=== PATIENT | female | born 1980 ===

== ENCOUNTER 2018-01-30 12:18 | Emergency (ER) | payer OTHER ==
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
[2018-01-30 13:49] LABS: SQUAMOUS EPITHIAL 11 /hpf (0-5); URINE BILIRUBIN NEGATIVE (NEGATIVE); URINE BLOOD NEGATIVE (NEGATIVE); URINE CLARITY CLOUDY (Clear); URINE COLOR YELLOW (YELLOW); URINE GLUCOSE (UA) NEG (Normal); URINE LEUKOCYTE ESTERASE NEG Leu/uL (Negative); URINE PROTEIN 30 mg/dL (NEGATIVE)
[2018-01-30 13:55] LABS: BASO # 0.1 K/uL (0.0-0.2); EOS # 0.1 K/uL (0.0-0.7); EOS % 1.2 % (0.0-4.0); HEMOGLOBIN 13.1 g/dL (12.0-16.0); LYMPH # 2.3 K/uL (1.0-4.3); LYMPH % 43.6 % (20.0-40.0); MEAN CELL VOLUME 89.6 fl (81.0-99.0); MEAN CORPUSCULAR HEMOGLOBIN 30.5 pg (27.0-31.0); MEAN PLATELET VOLUME 7.7 fl (7.2-11.7); MONO # 0.5 K/uL (0.0-0.8); MONO % 9.1 % (0.0-10.0); NEUT # 2.4 K/uL (1.8-7.0); NEUT % 45.1 % (50.0-75.0); NRBC % 0.1 % (0.0-0.0); RBC 4.3 Mil/uL (3.80-5.20); RED CELL DISTRIBUTION WIDTH 13.3 % (11.5-14.5); WHITE BLOOD COUNT 5.3 K/uL (4.8-10.8)
[2018-01-30 14:04] LABS: ALB/GLOB RATIO 1.3 (1.0-2.1); ALT/SGPT 22 U/L (9-52); AST/SGOT 18 U/L (14-36); BLOOD UREA NITROGEN 15 mg/dl (7-17); GFR NON-AFRICAN AMERICAN > 60
[2018-01-30 14:10] LABS: BARBITURATES, UR NEGATIVE (NEGATIVE); BENZODIAZEPINES, UR NEGATIVE (NEGATIVE); OPIATES, UR NEGATIVE (NEGATIVE); PHENCYCLIDINE, UR NEGATIVE (NEGATIVE)
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
[2018-01-30] MEDS ORDERED: DiphenhydrAMINE 50 mg/ml Inj ONE ×2 (22:39)
--- NOTE | 2018-01-31 00:26 | ED PDOC ---
- Laboratory Results Result Diagrams: 01/30/18 13:43 01/30/18 13:43 - ECG ECG: Positive for: Viewed By Me (reviewed by ED attending) ECG Rhythm: Positive for: Sinus Rhythm O2 Sat by Pulse Oximetry: 99 - Radiology X-Ray: Viewed By Me X-Ray Interpretation: No Acute Disease - Progress ED Course And Treament: Case endorsed to telegraphic typewriter repairer from [facility] pending [facility] [place] 1:30 Patient sleeping; no distress 3:00 Patient sleeping; no distress 5:00 Patient evaluated by [facility] screener and accepted, pending available bed CXR ordered <Jaylin Fonseca - Last Filed: 01/31/18 06:02> - Laboratory Results Result Diagrams: 01/30/18 13:43 01/30/18 13:43 <Joseph Woodall - Last Filed: 01/31/18 06:58> Medical Decision Making Medical Decision Makin Patient medically cleared for [facility] admission Will endorse to Dr. Robison pending bed availability at [facility] <Joseph Woodall - Last Filed: 01/31/18 06:58> Disposition - POA Present On Arrival: None - Disposition Disposition: Transfer of Care Disposition Time: 06:00 Patient Signed Over To: Joseph Woodall Handoff Comments: pending available bed and transfer to [facility] <Jaylin Fonseca - Last Filed: 01/31/18 06:02> <Joseph Woodall - Last Filed: 01/31/18 06:58> - Clinical Impression Clinical Impression: Brief psychotic disorder - Disposition Condition: GOOD Forms: [employer] (German)
--- NOTE | 2018-01-31 07:24 | ED PDOC ---
- Laboratory Results Result Diagrams: 01/30/18 13:43 01/30/18 13:43 - ECG O2 Sat by Pulse Oximetry: 99 (RA) Pulse Ox Interpretation: Normal Medical Decision Making Medical Decision Making: Time: 07:00 --Patient care endorsed from Dr. Woodall to Dr. Robison; Patient has been accepted to [facility] just pending bed availability 13:28 --Patient has a bed in [facility] and has been handed over to Dr. Jasmine. Scribe Attestation: Documented by Romeo Fernandez acting as a scribe for Sri Robison MD Provider Scribe Attestation: All medical record entries made by the Scribe were at my direction and personally dictated by me. I have reviewed the chart and agree that the record accurately reflects my personal performance of the history, physical exam, medical decision making, and the department course for this patient. I have also personally directed, reviewed, and agree with the discharge instructions and disposition. Disposition - Clinical Impression Clinical Impression: Brief psychotic disorder - Disposition Disposition: Transfer of Care ([facility]) Disposition Time: 13:28 Condition: GOOD Forms: [employer] (Kyrgyz)
--- NOTE | 2018-01-31 08:00 | CARD ---
APPROVED REPORT Date of service: 01/30/2018 EKG Measurement Heart [id number] <Conclusion> Normal sinus rhythm Normal ECG
--- NOTE | 2018-01-31 08:28 | RAD ---
Date of service: 01/31/2018 HISTORY: clearance COMPARISON: 06/24/2008. Images without report available FINDINGS: LUNGS: No active pulmonary disease. PLEURA: No significant pleural effusion identified, no pneumothorax apparent. CARDIOVASCULAR: Normal. OSSEOUS STRUCTURES: No significant abnormalities. VISUALIZED UPPER ABDOMEN: Normal. OTHER FINDINGS: None. IMPRESSION: No active disease.. No interval pathology noted.
[2018-01-31 14:09] VITALS: O2SAT 99
[2018-01-31 14:23] VITALS: BP 118/57; PULSE 59; RESP 15; TEMP 99.3
== END 2018-01-31 14:25 | disposition short-term general hospital (02) ==
LOC: H.ER 12:18
DX: F23 Brief psychotic disorder (principal)
CPT/HCPCS: 71045; 80053; 80320; 80324; 80345; 80346; 80349; 80353; 80358; 80361; 81003; 81025; 83992; 85025; 93005; 96372; 99285; J1630; J2060